=== PATIENT | female | born 1965 | race American Indian/Alaskan Native ===

== ENCOUNTER 2017-09-29 10:29 | Emergency (ER) | payer MEDICAID, OTHER ==
[2017-09-29 10:30] VITALS: BMI 32.8
[2017-09-29 10:43] VITALS: TEMP 97.8; O2SAT 99
[2017-09-29] MEDS ORDERED: DiphenhydrAMINE 50 mg/ml Inj IVP STA (10:50)
--- NOTE | 2017-09-29 11:06 | ED PDOC ---
Arrival/HPI - General Chief Complaint: Allergic Reaction Time Seen by Provider: 09/29/17 10:49 Historian: Patient - History of Present Illness Narrative History of Present Illness (Text): 09/29/17 11:03 52yo female with Past medical history of hypertension who present with complaint of pruritic rash to her face x 2days. Notes rash started Dom after using a new hair dye. Itching started yesterday. Saw her PMD today, but was referred to Emergency department for IV steroid. Denies shortness of breath, drooling, tongue swelling ,any other complaint. Past Medical History - Provider Review Nursing Documentation Reviewed: Yes - Infectious Disease Hx of Infectious Diseases: None - Tetanus Immunization Tetanus Immunization: Unknown - Reproductive Menopause: No - Cardiac Hx Hypertension: Yes - Psychiatric Hx Depression: No Hx Emotional Abuse: No Hx Physical Abuse: No Hx Substance Use: No - Past Surgical History Past Surgical History: No Previous - Surgical History Hx Section: Yes - Suicidal Assessment Feels Threatened In Home Enviroment: No Family/Social History - Physician Review Nursing Documentation Reviewed: Yes Family/Social History: Unknown Family HX Smoking Status: Never Smoked Hx Alcohol Use: No Hx Substance Use: No Hx Substance Use Treatment: No Allergies/Home Meds Allergies/Adverse Reactions: Allergies No Known Allergies Allergy (Verified 09/29/17 10:42) Home Medications: Home Meds Medication Instructions Recorded Confirmed Metoprolol Tartrate [Lopressor] 25 mg PO DAILY 07/09/14 09/29/17 Review of Systems - Physician Review All systems were reviewed & negative as marked: Yes - Review of Systems Constitutional: Normal Eyes: Normal ENT: Normal Respiratory: Normal Cardiovascular: Normal Gastrointestinal: Normal Genitourinary Female: Normal Musculoskeletal: Normal Skin: Rash, Pruritis Neurological: Normal Endocrine: Normal Hemo/Lymphatic: Normal Psychiatric: Normal Physical Exam Vital Signs Reviewed: Yes Vital Signs Temp Pulse Resp BP Pulse Ox 09/29/17 13:44 68 18 131/58 L 99 09/29/17 10:39 97.8 F 72 16 127/81 99 09/29/17 10:30 97.8 F 72 16 127/81 99 Temperature: Afebrile Blood Pressure: Normal Pulse: Regular Respiratory Rate: Normal Appearance: Positive for: Well-Appearing, Non-Toxic, Comfortable Pain Distress: None Mental Status: Positive for: Alert and Oriented X 3 - Systems Exam Head: Present: Atraumatic, Normocephalic Pupils: Present: PERRL Extroacular Muscles: Present: EOMI Conjunctiva: Present: Normal Mouth: Present: Moist Mucous Membranes Neck: Present: Normal Range of Motion Respiratory/Chest: Present: Clear to Auscultation, Good Air Exchange. No: Respiratory Distress, Accessory Muscle Use Cardiovascular: Present: Regular Rate and Rhythm, Normal S1, S2. No: Murmurs Abdomen: Present: Normal Bowel Sounds. No: Tenderness, Distention, Peritoneal Signs Back: Present: Normal Inspection Upper Extremity: Present: Normal Inspection. No: Cyanosis, Edema Lower Extremity: Present: Normal Inspection. No: Edema Neurological: Present: GCS=15, CN II-XII Intact, Speech Normal Skin: Present: Warm, Dry, Rashes (Erytehmatous hives noted to face), Normal Color Psychiatric: Present: Alert, Oriented x 3, Normal Insight, Normal Concentration Medical Decision Making ED Course and Treatment: 09/29/17 15:34 PT in Emergency department for stated history. Her symptoms resolved in Emergency department s/p medication. she was DC hoem with Prednisone, pepcid and Benadryl. Referred to her PMD. - Medication Orders Current Medication Orders: Discontinued Medications Diphenhydramine HCl (Benadryl) 25 mg IVP STAT STA Stop: 09/29/17 10:51 Last Admin: 09/29/17 11:00 Dose: 25 mg IVP Administration Document 09/29/17 11:00 RG (Rec: 09/29/17 13:35 [id number]) Charges for Administration # of IVP Administrations 1 Famotidine (Pepcid) 20 mg IVP STAT STA Stop: 09/29/17 10:51 Last Admin: 09/29/17 11:00 Dose: 20 mg IVP Administration Document 09/29/17 11:00 RG (Rec: 09/29/17 13:35 [id number]) Charges for Administration # of IVP Administrations 1 Methylprednisolone (Solu-Medrol) 125 mg IVP STAT STA Stop: 09/29/17 10:50 Last Admin: 09/29/17 11:00 Dose: 125 mg IVP Administration Document 09/29/17 11:00 RG (Rec: 09/29/17 13:34 RG [id number]) Charges for Administration # of IVP Administrations 1 Disposition/Present on Arrival - Present on Arrival Any Indicators Present on Arrival: No History of DVT/PE: No History of Uncontrolled Diabetes: No Urinary Catheter: No History of Decub. Ulcer: No History Surgical Site Infection Following: None - Disposition Have Diagnosis and Disposition been Completed?: Yes Diagnosis: Allergic reaction Disposition: HOME/ ROUTINE Disposition Time: 11:15 Patient Plan: Discharge Condition: STABLE Discharge Instructions (ExitCare): Urticaria (ED) Additional Instructions: Take medication as directed follow up with your doctor/Outside Sales Representative Insurance Return to Emergency department for any new or worsening symptoms Prescriptions: DiphenhydrAMINE [Benadryl] 25 mg PO Q4 #30 cap Famotidine [Pepcid] 20 mg PO DAILY #6 tab Prednisone [Deltasone] 20 mg PO BID #6 tablet Referrals: Eugene Forbes MD [Staff Provider] - Follow up with primary Forms: [facility] (Swedish)
[2017-09-29 13:44] VITALS: BP 131/58; PULSE 68; RESP 18
== END 2017-09-29 13:51 | disposition home or self-care (01) ==
LOC: ED 10:29
DX: L50.0 Allergic urticaria (principal)
CPT/HCPCS: 96374; 96375; 99285; J1200; J2930

== ENCOUNTER 2018-08-09 08:41 | Emergency (ER) | payer OTHER ==
[2018-08-09 08:42] VITALS: BMI 32.8
[2018-08-09 09:02] VITALS: BP 138/60; PULSE 88; RESP 18; TEMP 97.9; O2SAT 98
--- NOTE | 2018-08-09 09:27 | ED PDOC ---
Arrival/HPI - General Chief Complaint: Lower Extremity Problem/Injury Time Seen by Provider: 08/09/18 08:43 Historian: Patient - History of Present Illness Narrative History of Present Illness (Text): 08/09/18 09:10 A 53 year old female, whose past medical history includes hypertension and sciatica nerve damage, presents to the emergency department complaining of right ankle/foot and tail bone pain s/p fall last night. pt reports slipped onw ater. Patient resulted in slipping and injuring right foot/ankle and tailbone. Patient became concerned of fractures and decided to arrive to the ER to be evaluated and treated. Patient denies any head trauma, or any other complaints at this time. No PMD Time/Duration: 24 hours Past Medical History - Provider Review Nursing Documentation Reviewed: Yes - Infectious Disease Hx of Infectious Diseases: None - Tetanus Immunization Tetanus Immunization: Unknown - Cardiac Hx Hypertension: Yes - Psychiatric Hx Depression: No Hx Emotional Abuse: No Hx Physical Abuse: No Hx Substance Use: No - Past Surgical History Past Surgical History: No Previous - Surgical History Hx Section: Yes - Suicidal Assessment Feels Threatened In Home Enviroment: No Family/Social History - Physician Review Nursing Documentation Reviewed: Yes Family/Social History: No Known Family HX Smoking Status: Current Some Days Smoker Hx Alcohol Use: No Hx Substance Use: No Hx Substance Use Treatment: No Allergies/Home Meds Allergies/Adverse Reactions: Allergies No Known Allergies Allergy (Verified 08/09/18 09:02) Home Medications: Home Meds Medication Instructions Recorded Confirmed RX: Metoprolol Tartrate [Lopressor] 25 mg PO DAILY 07/09/14 08/09/18 Alprazolam [Xanax] 0.5 mg PO DAILY 08/09/18 08/09/18 Review of Systems - Physician Review All systems were reviewed & negative as marked: Yes - Review of Systems Constitutional: absent: Other (no head trauma) Musculoskeletal: Other (right ankle/foot and tailbone pain.) Physical Exam Vital Signs Reviewed: Yes Vital Signs Temp Pulse Resp BP Pulse Ox 08/09/18 08:59 97.9 F 88 18 138/60 98 Temperature: Afebrile Blood Pressure: Normal Pulse: Regular Respiratory Rate: Normal Appearance: Positive for: Well-Appearing, Non-Toxic, Comfortable Pain Distress: None Mental Status: Positive for: Alert and Oriented X 3 - Systems Exam Head: Present: Atraumatic, Normocephalic Pupils: Present: PERRL Extroacular Muscles: Present: EOMI Conjunctiva: Present: Normal Mouth: Present: Moist Mucous Membranes Neck: Present: Normal Range of Motion Respiratory/Chest: Present: Clear to Auscultation, Good Air Exchange. No: Respiratory Distress, Accessory Muscle Use Cardiovascular: Present: Regular Rate and Rhythm, Normal S1, S2. No: Murmurs Abdomen: No: Tenderness, Distention, Peritoneal Signs Back: Present: Normal Inspection Upper Extremity: Present: Normal Inspection. No: Cyanosis, Edema Lower Extremity: Present: Normal Inspection, Other (sacrum tenderness). No: Edema Neurological: Present: GCS=15, CN II-XII Intact, Speech Normal Skin: Present: Warm, Dry, Normal Color. No: Rashes Psychiatric: Present: Alert, Oriented x 3, Normal Insight, Normal Concentration Medical Decision Making ED Course and Treatment: 08/09/18 09:13 Impression: 53 year old female with right ankle/foot and tail bone pain s/p fall. Physical exam shows sacrum tenderness. Plan: -- Tylenol -- Right Foot X-Ray -- Right Ankle X-Ray -- Sacrum &/or Coccyx X-Ray -- Right Tibia Fibula X-Ray -- Reassess and disposition Progress Notes: 08/09/18 13:06 xr neg. given splint outpt fu. 08/09/18 13:07 - RAD Interpretation Radiology Orders: 08/09/18 09:11 ANKLE RIGHT 3 VIEWS ROUTINE [RAD] Stat FOOT RIGHT 3 VIEWS ROUTINE [RAD] Stat SACRUM &/or COCCYX (MIN 2VW) [RAD] Stat TIBIA FIBULA RIGHT [RAD] Stat - Medication Orders Current Medication Orders: Discontinued Medications Acetaminophen (Tylenol 325mg Tab) 975 mg PO STAT STA Stop: 08/09/18 09:14 - Scribe Statement The provider has reviewed the documentation as recorded by the Payton Davey Provider Scribe Attestation: All medical record entries made by the Scribe were at my direction and per sonally dictated by me. I have reviewed the chart and agree that the record accurately reflects my personal performance of the history, physical exam, medical decision making, and the department course for this patient. I have also personally directed, reviewed, and agree with the discharge instructions and disposition. Disposition/Present on Arrival - Present on Arrival Any Indicators Present on Arrival: No History of DVT/PE: No History of Uncontrolled Diabetes: No Urinary Catheter: No History of Decub. Ulcer: No History Surgical Site Infection Following: None - Disposition Have Diagnosis and Disposition been Completed?: Yes Diagnosis: Ankle sprain, Coccyx sprain Disposition: HOME/ ROUTINE Disposition Time: 08:00 Condition: STABLE Discharge Instructions (ExitCare): Ankle Sprain (DC), Coccyx Injury Additional Instructions: return to er with worsening symptoms or concerns. Prescriptions: RX: Naproxen 500 mg PO BID PRN #20 tablet PRN Reason: Pain, Mild (1-3) Referrals: Adiel Kimball DO [Staff Provider] - Follow up with primary Forms: [facility] ([place])
--- NOTE | 2018-08-09 10:24 | RAD ---
Date of service: 08/09/2018 PROCEDURE: Radiographs of the right tibia and fibula. HISTORY: trauma COMPARISON: None available TECHNIQUE: Frontal and lateral views obtained. FINDINGS: BONES: Bone alignment and mineralization are normal. There is no acute displaced fracture or bone destruction. JOINT SPACES: Unremarkable. OTHER FINDINGS: None. IMPRESSION: No acute fracture or dislocation.
--- NOTE | 2018-08-09 10:27 | RAD ---
Date of service: 08/09/2018 PROCEDURE: Right Foot Radiographs. HISTORY: trauma COMPARISON: None. FINDINGS: BONES: Bone alignment and mineralization are normal. There is no acute displaced fracture or bone destruction. JOINTS: Normal. SOFT TISSUES: Normal. OTHER FINDINGS: None. IMPRESSION: No acute fracture or dislocation.
--- NOTE | 2018-08-09 10:44 | RAD ---
Date of service: 08/09/2018 PROCEDURE: Right Ankle Radiographs. HISTORY: trauma COMPARISON: None available. FINDINGS: BONES: Bone alignment and mineralization are normal. There is no acute displaced fracture or bone destruction. JOINTS: Normal. No osteoarthritis. Ankle mortise maintained. Talar dome intact SOFT TISSUES: Normal. OTHER FINDINGS: None. IMPRESSION: No acute fracture or dislocation.
--- NOTE | 2018-08-09 10:45 | RAD ---
Date of service: 08/09/2018 PROCEDURE: Radiographs of the Sacrum and Coccyx HISTORY: Trauma COMPARISON: None available. TECHNIQUE: Frontal and lateral views of the sacrum and coccyx FINDINGS: BONES: Sacrum and coccyx unremarkable. No acute fracture or focal lesion. The sacrococcygeal angulation is normal. SACROILIAC JOINTS: Unremarkable. OTHER FINDINGS: None. IMPRESSION: No acute fracture or dislocation.
== END 2018-08-09 10:52 | disposition home or self-care (01) ==
LOC: ED 08:41
DX: S93.401A Sprain of unspecified ligament of right ankle, initial encounter (principal); S33.8XXA Sprain of other parts of lumbar spine and pelvis, initial encounter; W01.0XXA Fall on same level from slipping, tripping and stumbling without subsequent striking against object, initial encounter; Y92.9 Unspecified place or not applicable
CPT/HCPCS: 72220; 73590; 73610; 73630; 96372; 99283; J1885